=== PATIENT | female | born 1995 | race Caucasian/White ===

== ENCOUNTER 2017-03-22 07:59 | Day surgery (SDC) | payer OTHER ==
[~2017-03-22] VITALS: Ht 165.1 cm; Wt 79.8 kg
[2017-03-22 08:54] LABS: BASOPHILS # (AUTO) 0.2 K/uL (0.00-0.22); BASOPHILS % (AUTO) 3.2 % (0.0-2.0); EOSINOPHILS # (AUTO) 0.2 K/uL (0-0.4); EOSINOPHILS % (AUTO) 2.3 % (0.0-4.0); HEMATOCRIT 40.6 % (36-48); HEMOGLOBIN 13.2 g/dL (12.0-16.0); LYMPHOCYTES # (AUTO) 3.8 K/uL (2.5-16.5); LYMPHOCYTES % (AUTO) 51.7 % (20.5-51.1); MEAN CORPUSCULAR HEMOGLOBIN 28 pg (27-31); MEAN CORPUSCULAR HGB CONC 33 g/dL (33-37); MEAN CORPUSCULAR VOLUME 87 fL (80-94); MONOCYTES # (AUTO) 0.4 K/uL (0.8-1.0); MONOCYTES % (AUTO) 6.1 % (1.7-9.3); NEUTROPHILS # (AUTO) 2.7 K/uL (1.8-7.7); NEUTROPHILS % (AUTO) 36.7 % (42.2-75.2); PLATELET COUNT (AUTO) 274 K/uL (140-450); RED BLOOD CELL COUNT(AUTO) 4.67 MIL/uL (4.20-5.40); RED CELL DISTRIBUTION WIDTH 12.6 % (11.6-13.7); WHITE BLOOD COUNT (AUTO) 7.3 K/uL (4.8-10.8)
[2017-03-22 09:01] LABS: ALBUMIN 3.5 g/dL (3.4-5.0); ANION GAP 10.5 (8-16); CALCIUM 8.4 mg/dL (8.5-10.1); CARBON DIOXIDE 29.1 mmol/L (21-32); CREATININE 0.9 mg/dL (0.6-1.3); POTASSIUM 3.6 mmol/L (3.5-5.1); TOTAL BILIRUBIN 0.5 mg/dL (0.0-1.0); TOTAL PROTEIN, SERUM 7.4 g/dL (6.4-8.2)
[2017-03-22] MEDS ORDERED: SEVOFLURANE 250 ML BTL INH ONE (11:05)
[2017-03-22] MEDS ORDERED: PROPOFOL 200 MG/20 ML VIAL IV ONE (11:05)
[2017-03-22] MEDS ORDERED: DEXAMETHASONE 4 MG/ML VIAL ONE (11:05)
[2017-03-22] MEDS ORDERED: ONDANSETRON 4 MG/2 ML VIAL ONE (11:05)
[2017-03-22] MEDS ORDERED: BUPIVACAINE-MPF/EPI 0.25% 30 ML VIAL INJ ONE (11:19)
[2017-03-22] MEDS ORDERED: LIDOCAINE 1% 50 ML ONE (11:19)
[2017-03-22] MEDS ORDERED: MIDAZOLAM 2 MG/2 ML VIAL ONE (11:22)
[2017-03-22] MEDS ORDERED: MEPERIDINE 50 MG/ML SYR ONE (11:23)
[2017-03-22] MEDS ORDERED: fentaNYL 0.05 MG/ML VIAL ONE (11:23)
[2017-03-22] MEDS ORDERED: MORPHINE SULFATE 2 MG/ML SYR IVP PRN (12:05)
[2017-03-22] MEDS ORDERED: MORPHINE SULFATE 4 MG/ML SYR IV PRN (12:05)
[2017-03-22] MEDS ORDERED: NACL 0.9% 1,000 ML IV SCH (12:05)
[2017-03-22] MEDS ORDERED: ONDANSETRON 4 MG/2 ML VIAL IV PRN (12:05)
[2017-03-22] MEDS ORDERED: HYDROcodone/APAP 5/325 MG 1 TAB TAB PO PRN (12:05)
[2017-03-22] MEDS ORDERED: HYDROmorphone 1 MG/ML AMP IVP PRN ×2 (12:05→12:10)
[2017-03-22] MEDS ORDERED: LACTATED RINGERS 1,000 ML IV SCH (12:07)
[2017-03-22] MEDS ORDERED: ONDANSETRON 4 MG/2 ML VIAL IVP PRN (12:10)
[2017-03-22] MEDS ORDERED: diphenhydrAMINE 50 MG/ML VIAL IVP PRN (12:10)
[2017-03-22] MEDS ORDERED: MEPERIDINE 25 MG/ML SYR IVP PRN (12:10)
== END 2017-03-22 13:36 | disposition home or self-care (01) ==
LOC: MOR 07:59 → MMU 08:00 → MOR 13:36
PROVIDERS: ATTEND Surgery
DX: N63 Unspecified lump in breast (principal); E28.2 Polycystic ovarian syndrome; I10 Essential (primary) hypertension; E11.9 Type 2 diabetes mellitus without complications; F17.210 Nicotine dependence, cigarettes, uncomplicated
CPT/HCPCS: 19120; 36415; 71010; 80053; 84702; 85025; 88307; J0690; J1100; J2001; J2250; J2405; J2704; J3010; J3490; J7060; J7120; J2175